=== PATIENT | male | born 1995 | race African-American/Black ===

== ENCOUNTER 2017-06-24 11:40 | Emergency (ER) | payer SELFPAY ==
[~2017-06-24] VITALS: Ht 175.3 cm; Wt 78.1 kg
[2017-06-24] MEDS ORDERED: MAALOX/LIDOCAINE/NYSTATIN SUSP 5 ML ORAL.SYG PO ONE (13:00)
[2017-06-24 13:44] VITALS: BP 125/65
== END 2017-06-24 13:53 | disposition home or self-care (01) ==
LOC: EMS 11:43
DX: K12.0 Recurrent oral aphthae (principal); F12.90 Cannabis use, unspecified, uncomplicated
CPT/HCPCS: 99283